=== PATIENT | female | born 1965 | race Hispanic/Latino ===

== ENCOUNTER 2023-10-06 12:23 | Emergency (ER) | payer BC, OTHER ==
[~2023-10-06] VITALS: Ht 154.9 cm; Wt 86.2 kg
[2023-10-06 12:33] VITALS: BP 114/78; PULSE 98; RESP 16; O2SAT 97
[2023-10-06 13:24] LABS: BASOPHILS # (AUTO) 0.08 K/uL (0.00-0.20); BASOPHILS % (AUTO) 0.6 % (0.0-5.0); EOSINOPHILS # (AUTO) 0.08 K/uL (0.00-0.70); EOSINOPHILS % (AUTO) 0.6 % (0.0-8.0); HEMATOCRIT 47.2 % (36-48); IMMATURE GRANULOCYTE ABSOLUTE 0.07 K/uL (0-1); LYMPHOCYTES # (AUTO) 2.4 K/uL (1.0-4.8); LYMPHOCYTES % (AUTO) 18.3 % (21.0-51.0); MEAN CORPUSCULAR HEMOGLOBIN 28.7 pg (27.0-33.0); MEAN CORPUSCULAR HGB CONC 33.1 g/dL (32.0-36.0); MEAN CORPUSCULAR VOLUME 86.9 fL (79-99); MONOCYTES # (AUTO) 0.9 K/uL (0.1-1.0); MONOCYTES % (AUTO) 6.9 % (3.0-13.0); NEUTROPHILS # (AUTO) 9.5 K/uL (1.8-7.7); NEUTROPHILS % (AUTO) 73.1 % (40.0-77.0); PLATELET COUNT (AUTO) 252 K/uL (130-400); RED BLOOD CELL COUNT(AUTO) 5.43 MIL/uL (4.00-5.50); RED CELL DISTRIBUTION WIDTH 13.6 % (11.0-15.5)
[2023-10-06 13:36] LABS: CREATININE 0.7 mg/dL (0.5-1.5); POTASSIUM 3.9 mmol/L (3.5-5.1)
[2023-10-06 13:40] LABS: ALBUMIN 3.6 g/dL (3.5-5.0); BILIRUBIN,TOTAL 0.8 mg/dL (0.2-1.0); TOTAL PROTEIN, SERUM 7.4 g/dL (6.0-8.3)
[2023-10-06 15:15] LABS: APPEARANCE,URINE CLOUDY (CLEAR); BILIRUBIN,URINE NEGATIVE (NEGATIVE); COLOR,URINE YELLOW (YELLOW); GLUCOSE, URINE (UA) NEGATIVE (NEGATIVE); KETONES,URINE 100 mg/dL (NEGATIVE); LEUKOCYTE ESTERASE ,URINE NEGATIVE Leu/uL (NEGATIVE); NITRATE,URINE NEGATIVE (NEGATIVE); PH,URINE 6.5 (5.0-8.0); PROTEIN,URINE 30 mg/dL (NEGATIVE)
[2023-10-06 15:16] LABS: ADD UA MICROSCOPIC YES
[2023-10-06 15:19] LABS: BACTERIA,URINE RARE /HPF (None Seen); MUCUS,URINE RARE LPF (None Seen); SQUAMOUS EPITHELIAL CELL,UR FEW /HPF (0-2)
[2023-10-06] MEDS ORDERED: METOCLOPRAMIDE 10 MG/2 ML VIAL IM ONE (16:30)
[2023-10-06] MEDS ORDERED: METRONIDAZOLE 500 MG TABLET PO SCH (16:30)
[2023-10-06] MEDS ORDERED: METR-172 PO (16:43)
[2023-10-06] MEDS ORDERED: ONDA4TAB10 PO (16:43)
== END 2023-10-06 16:50 | disposition home or self-care (01) ==
LOC: EDH 12:23
DX: K52.89 Other specified noninfective gastroenteritis and colitis (principal); E03.9 Hypothyroidism, unspecified; E78.00 Pure hypercholesterolemia, unspecified; Z98.890 Other specified postprocedural states
CPT/HCPCS: 99284; 71045; 84484; 80053; 83690; 85025; 81001; 36415; 96372; 93005; J2765

== ENCOUNTER 2025-08-07 19:46 | Emergency (ER) | payer BC, OTHER ==
[~2025-08-07] VITALS: Ht 157.5 cm; Wt 88.9 kg
--- NOTE | 2025-08-07 20:06 | ERN ---
General Chief Complaint: Lower Extremity Pain/Injury Stated Complaint: C/O PAIN TO LEFT LOWER LEG ONSET 07/14/2025 Time Seen by MD: 19:50 History of Present Illness Initial Comments 60-year-old female here for evaluation of left calf pain. Patient has been having chronic pain for the past few months for which he has spoken with the primary care doctor about it has taken multiple medications but she still remains in pain. She is asking for an MRI or any other diagnostic procedure at this time. Allergies: Coded Allergies: No Known Allergies (Unverified Allergy, Unknown, 10/06/23) Home Meds Active Scripts Ondansetron (Ondansetron Odt) 4 Mg Tab.rapdis, 4 MG PO Q6HPRN PRN for nausea, #16 TAB 2 Refills Prov:SIMA TELLO Sr., MD 10/06/23 Metronidazole (Metronidazole) 500 Mg Tablet, 500 MG PO QID for 10 Days, #40 TAB 0 Refills Prov:SIMA TELLO Sr., MD 10/06/23 Past Medical History Past Medical History: Unknown Medical History Other: THYROID Past Surgical History: Unknown Musculoskeletal: (+) joint pain, (+) joint swelling, (+) muscle pain Review of Systems: was completed, & the rest were negative. Physical Exam Physical Exam Dictation GENERAL APPEARANCE NAD, activity normal for age, well developed/ well nourished, no cyanosis, pallor, or diaphoresis. EYES lids/conjunctiva normal. EARS/NOSE/THROAT Mucous membranes moist, nares normal, lips/teeth normal uvula midline without oral pharyngeal erythema, exudate or swelling TMs normal bilaterally. No lymphangitis/lymphedema. HEAD/NECK normocephalic atraumatic, no facial trauma, neck is supple. RESPIRATORY respiratory effort normal, speaks in full sentences, no tripod position, no accessory muscle use. Lungs clear to auscultation without rhonchi, wheezes, rales CARDIAC Regular rate and rhythm, no edema. ABDOMINAL Soft, ND/NT. No evidence of fluid wave. No pulsatile masses on exam, rebound tenderness, sign or pain over Mcburney's point. MUSCLES/EXTREMITIES No abnormal range of motion, no swelling. SKIN Warm, pink and dry. No rashes, dermatoses, petechiae or lesions. NEUROLOGICAL Speech is clear and appropriate. Normal level of consciousness. Gait and coordination are normal. 5/5 strength in all extremities. PSYCH Normal mood and affect. Judgement/competence is appropriate MDM 60-year-old female with chronic left lower extremity pain here for pain management. I spoke to the patient regarding her options here in the emergency room. I told her that an ultrasound is not diagnostic. She more than likely needs an MRI as an outpatient to determine the cause of her pain. She already has a primary care doctor for which he is taking pain medications for. I will offer her Toradol, methocarbamol, and a [place] to help with the pain today. However she is to follow up with the primary care doctor tomorrow for evaluation. We will discharge home soon ED Course Orders Procedure Category Date Status Time Ketorolac PHA 08/07/25 Complete Tromethamine 15mg/Ml 20:00 Hydrocodone/Apap PHA 08/07/25 Complete 5/325 ([place] 5/325mg) 20:00 Methocarbamol PHA 08/07/25 Complete (Methocarbamol) 20:00 Hydromorphone 1 Mg PHA 08/07/25 Complete Inj (Dilaudid 1mg Inj 21:30 Current Medications Medications (Trade) Dose Ordered Sig/Marty Route PRN Reason Start Time Stop Time Status Last Admin Dose Admin Acetaminophen/ Hydrocodone Bitart (NORco 5/325MG) 1 tab ONCE ONCE PO 08/07/25 20:00 08/07/25 20:07 DC 08/07/25 21:54 Hydromorphone HCl (DiLAUDid 1MG INJ) 0.5 mg ONCE ONCE IVP 08/07/25 21:30 08/07/25 21:31 DC 08/07/25 21:54 Ketorolac Tromethamine (toRADol) 15 mg ONCE ONCE IM 08/07/25 20:00 08/07/25 20:08 DC 08/07/25 21:55 Methocarbamol (methoCARBamol) 1,000 mg ONCE ONCE PO 08/07/25 20:00 08/07/25 20:07 DC 08/07/25 21:55 Vital Signs Date Time Temp Pulse Resp B/P (MAP) Pulse Ox O2 Delivery O2 Flow Rate FiO2 08/07/25 22:36 98.4 75 15 135/66 99 Room Air* 0 21 08/07/25 19:49 98.2 81 20 129/74 98 Room Air Patient re-evaluated after pain medications. States she feels much better wallis lilian she is requesting a referral to her PCP for an MRI. I told her that she does not need a referral from the emergency room to see her primary care doctor. She had imaging done yesterday thus imaging is not necessary today. all questions were answered at this time. We will discharge home. DX & DISP Disposition: Discharge Departure Impression: Primary Impression: Strain of left calf muscle Condition: Stable KIKI ARANDA MD Aug 07, 2025 20:06
[2025-08-07] MEDS: HYDROcodone/APAP 5/325 1 TAB TABLET PO ONE (21:54)
[2025-08-07 22:36] VITALS: BP 135/66; PULSE 75; RESP 15; TEMP 98.5; O2SAT 99
== END 2025-08-07 23:22 | disposition home or self-care (01) ==
LOC: EDH 19:46
DX: S86.112A Strain of other muscle(s) and tendon(s) of posterior muscle group at lower leg level, left leg, initial encounter (principal); Z79.899 Other long term (current) drug therapy; X58.XXXA Exposure to other specified factors, initial encounter; Y93.89 Activity, other specified; Y92.89 Other specified places as the place of occurrence of the external cause; Y99.8 Other external cause status
CPT/HCPCS: 99284; 96374; 96372; J1885; J1171